=== PATIENT | female | born 1980 | race Caucasian/White ===

== ENCOUNTER 2019-06-13 12:11 | Emergency (ER) | payer MEDICAID, SELFPAY ==
[2019-06-13 12:14] VITALS: BP 153/78; PULSE 66; RESP 18; TEMP 36.7; O2SAT 98; BMI 34.0
--- NOTE | 2019-06-13 12:30 | CT_ITS ---
STUDY: CT SOFT TISSUE NECK WITH CONTRAST REASON FOR EXAM: Female, 38 years old. SWELLING TO BACK OF HEAD -- NO INJURY -- HX-LUPUS -- PLEASE COMMENT ON C-SPINE ALSO RADIATION DOSAGE (If Supplied By Facility): CTDIvol = ( 22.37 ) mGy, DLP = ( 620.04 ) mGycm TECHNIQUE: The patient was scanned in a multi-detector CT scanner. High resolution transaxial imaging was performed following intravenous administration of IV 75mL Isovue-300. Sagittal and coronal images were reconstructed. Individualized dose optimization techniques were used for this CT. COMPARISON: None. FINDINGS: Normal bilateral parotid glands. Normal bilateral director of promotions spaces. Normal bilateral parapharyngeal spaces. Normal bilateral carotid spaces. Normal bilateral sublingual and submandibular glands and spaces. Normal visualized nasopharynx. Normal retropharyngeal space. Normal perivertebral space. Normal visualized bilateral faucial tonsils. The visualized tongue, tongue base and oropharynx are normal. The visualized cervical lymph nodes (levels I-) are within normal size limits, and maintain normal morphology. There is no demonstrated solid or cystic mass lesion. There is no abnormal contrast enhancement. Normal epiglottis, bilateral vallecula and hypopharynx. The pre-epiglottic and paraglottic adipose spaces are normal. Normal visualized bilateral piriform sinuses, aryepiglottic folds, vocal cords, and arytenoid-cricoid articulations. Normal subglottic trachea. Normal bilateral lobes of the thyroid gland. Normal visualized pulmonary apices. Mucosal polyps or retention cysts in the inferior aspect of both maxillary sinuses. Straightening of the normal cervical spine lordosis. CT/Soft Tissue Neck WITH Contrast IMPRESSION: Mucosal polyps or retention cyst in the inferior aspect of both maxillary sinuses. Electronically Signed: Michael Pinto, at 14:20 EDT , Service support ,
[2019-06-13] MEDS: Morphine 4 MG/ML Syringe IV (12:50)
[2019-06-13] MEDS: Ondansetron 4 MG/2 ML Vial IV (12:50)
[2019-06-13 13:06] LABS: Absolute Lymphocyte Count 1.33 X10^3/uL (0.83-4.51); Basophil# 0.03 X10^3/uL; Basophil% 0.5 % (0-1); Eosinophil# 0.16 X10^3/uL; Eosinophils% 2.6 % (0-5); Hematocrit 38.4 % (37-47); Hemoglobin 12.5 g/dL (12.0-15.0); Lymphocyte # 1.33 X10^3/ul (4.0); Lymphocyte % 21.8 % (19-41); Mean Corp Hgb Conc 32.6 g/dL (32-36); Mean Corpuscular Hgb 28.5 pg (27.0-32.0); Mean Corpuscular Volume 87.5 fL (81-99); Mean Platelet Vol. 9.6 fl (6.2-12.0); Monocyte# 0.58 X10^3/uL; Monocyte% 9.5 % (0-10); NRBC Flagged by Analyzer 0 % (0-5); Neutrophil % 65.4 % (47-70); Platelet Count 267 K/mm3 (150-450); RBC Distribution Width CV 12.5 % (11.6-14.6); RBC Distribution Width SD 39.8 fl (35.1-43.9); Red Blood Count 4.39 M/mm3 (4.2-5.4); White Blood Count 6.1 K/mm3 (4.4-11.0)
[2019-06-13 13:19] LABS: Anion Gap 3 (5-15); BUN 7 mg/dL (7-18); BUN/Creat Ratio 10.7 RATIO (10-20); Calcium,Total 8.6 mg/dL (8.5-10.1); Chloride 110 mmol/L (98-107); Creatinine, Serum 0.66 mg/dL (0.55-1.02); EST Glomerular Filtration Rate 108 mL/min (>60); Est Glom Filt Rate - Afr Amer 131 mL/min (>60); Estimated Creatinine Clearance 97.48 ml/min; Glucose 95 mg/dL (74-106); Potassium 3.8 mmol/L (3.5-5.1); Sodium Level 139 mmol/L (136-145)
[2019-06-13] MEDS: Acetaminophen 500 MG Tablet 1000 MG PO (14:30)
[2019-06-13 14:32] VITALS: BP 111/57; PULSE 64; RESP 17; O2SAT 97
--- NOTE | 2019-06-13 14:58 | ED.VIS.GEN ---
History of Present Illness Chief Complaint: Other, Pain/Inj Narrative: Patient presenting secondary to neck pain. Patient has an underlying history of lupus, she is on methotrexate and hydroxychloroquine. Patient states that over the course of about the last 4 days she has had a progressive onset of pain in the posterior portion of her neck. Patient states that this was atraumatic in onset is continuous and seems to be tracking down her thoracic spine. Pain is worse with palpation and movement. She denies any numbness or weakness. She denies any infectious type signs or symptoms such as fever cough nausea vomiting diarrhea. No skin changes. She is never had any prior similar episodes in the past. Review of systems otherwise negative. Past Medical History - Allergies and Home Meds Allergies/Adverse Reactions: Allergies levofloxacin [From Levaquin] Allergy (Verified 06/13/19 12:14) Hives Penicillins [PCN] Allergy (Verified 06/13/19 12:14) Anaphylaxis metoclopramide [From Reglan] Adverse Reaction (Verified 06/13/19 12:14) PT UNSURE OF REACTION Primary Care Physician: MURIEL LOPEZ [Other] Past Medical History: - - Lupus Smoking Status: Never smoker Review of Systems All systems negative except as indicated General: Denies: Chills, Fever, Sweats Eyes: Denies: Visual changes - bilaterally, Diplopia ENT: Denies: Rhinorrhea, Sore throat Cardiovascular: Denies: Chest pain, Palpitations Respiratory: Denies: Dyspnea, Cough, Dyspnea on exertion Gastrointestinal: Denies: Abdominal pain, Nausea, Vomiting, Diarrhea, Melena, Hematochezia Genitourinary: Denies: Dysuria, Hematuria, Frequency Musculoskeletal: Reports: Neck pain Skin: Denies: Rash, Wounds Neurological: Denies: Headache, Weakness, Numbness Physical Exam Vital Signs/Narrative: Vital Signs Temp Pulse Resp BP Pulse Ox 06/13/19 14:32 64 17 111/57 L 97 06/13/19 12:14 98.1 F 66 18 153/78 H 98 Inital Vital Signs reviewed: Yes General: Well nourished, Well developed, No Acute Distress Head: Normocephalic, Atraumatic Eyes: Perrl, EOMI ENT: Moist mucous membranes, No rhinorrhea Neck: Supple, - - Patient complains of paraspinal neck pain in the cervical spine and states that there is swelling in the area but I am not able to appreciate this objectively. There is a small pustule at the approximately C2 level of the midline of the patient's neck. Cardiovascular: Regular rate, Regular rhythm, No murmurs Respiratory: No distress, CTA bilaterally, Chest nontender Abdomen: Soft, Nontender, Nondistended, Normal bowel sounds Back: Nontender, Normal Inspection Extremities: Nontender, No edema, - - 5 out of 5 strength of the shoulder elbow wrist and hand. Normal sensation over all dermatomes. Skin: Normal color, No rash Neurological: Alert, Oriented x3, Cranial nerves II-XII grossly intact, Normal Strength, Normal Sensation Psychological: Normal affect, Normal Mood Diagnostic/Tx/Re-eval - Medical Decision Making Patient presented secondary to neck pain. Physical exam but we really was not able to identify masses in the patient's neck, but she is immunosuppressed due to her lupus so work-up was obtained. CBC and chemistry unremarkable. CT soft tissue neck was obtained and shows no evidence of soft tissue masses, bony changes, or other acute process. Patient at this point likely has a musculoskeletal etiology for her pain. Patient will be given lidocaine patches and muscle relaxers. Patient was discharged in stable condition. ED Disposition - Plan for ED Patient: Disposition: Home or Assisted Living Diagnosis: Cervical strain Instructions: ED Sprain Strain Neck Prescriptions: cycloBENZAPRine HCl [Flexeril] 10 mg PO TID PRN #20 tab PRN Reason: Muscle Spasm Prescription Printed Lidocaine [Lidoderm Patch] 1 patch TOPICAL DAILY #10 patch Prescription Printed Referrals: MURIEL LOPEZ [Other] - 1 Week
[2019-06-13 15:11] VITALS: BP 108/70; PULSE 75; RESP 14; O2SAT 100
== END 2019-06-13 15:13 | disposition home or self-care (01) ==
PROVIDERS: Emergency Provider Emergency Medicine
DX: S16.1XXA Strain of muscle, fascia and tendon at neck level, initial encounter (principal); L08.9 Local infection of the skin and subcutaneous tissue, unspecified; X58.XXXA Exposure to other specified factors, initial encounter; Y93.9 Activity, unspecified; Y92.9 Unspecified place or not applicable; Y99.9 Unspecified external cause status; M32.9 Systemic lupus erythematosus, unspecified; Z88.0 Allergy status to penicillin; Z88.1 Allergy status to other antibiotic agents; Z88.8 Allergy status to other drugs, medicaments and biological substances; Z79.899 Other long term (current) drug therapy
CPT/HCPCS: 70491; 80048; 85025; 96374; 96375; 99283; J7050; Q9967; A4216; J2405

== ENCOUNTER → 2019-06-16 12:58 | Outpatient (CLI) | payer MEDICAID, SELFPAY ==
[2019-06-13 12:14] VITALS: BMI 34.0
[2019-06-16 14:35] LABS: Vitamin D,25 Hydroxy 23.3 ng/mL
== END ==
DX: S92.901A Unspecified fracture of right foot, initial encounter for closed fracture (principal); X58.XXXA Exposure to other specified factors, initial encounter; Y93.9 Activity, unspecified; Y92.9 Unspecified place or not applicable; Y99.9 Unspecified external cause status
CPT/HCPCS: 36415; 82306

== ENCOUNTER 2019-06-21 15:02 | Emergency (ER) | payer MEDICAID, SELFPAY ==
[2019-06-21 15:03] VITALS: BP 142/79; PULSE 86; RESP 17; TEMP 36.3; O2SAT 100; BMI 40.7
--- NOTE | 2019-06-21 15:12 | CT_ITS ---
STUDY: CT ABDOMEN AND PELVIS WITHOUT CONTRAST REASON FOR EXAM: Female, 38 years old. RIGHT FLANK PAIN RADIATES TO RLQ--SUDDEN ONSET THIS AM -- HX-LUPUS--TAKES METHOTREXATE RADIATION DOSAGE (If Supplied By Facility): CTDIvol = ( 21.29 ) mGy, DLP = ( 1095.64 ) mGycm TECHNIQUE: Transaxial images were obtained from the dome of the diaphragm to the symphysis pubis without oral contrast, and without intravenous contrast. Sagittal and coronal images were reconstructed. Individualized dose optimization techniques were used for this CT. COMPARISON: None. FINDINGS: Minimal increased markings at the lung bases. The visualized portions of the heart are within normal limits. Normal liver. There are surgical clips in the gallbladder fossa consistent with a prior cholecystectomy. Normal spleen. Normal pancreas. Normal bilateral adrenal glands. Normal right kidney. Normal left kidney. There is a small hiatal hernia. Normal small intestine. Normal colon. The appendix is visualized and appears normal. Normal abdominal aorta. Normal inferior vena cava. There is borderline retroperitoneal lymphadenopathy with enlarged nodes no greater than 10mm in the short axis diameter. Normal urinary bladder. Normal abdominal wall. Normal osseous structures. CT/Abdomen/Pelvis without Cont IMPRESSION: No acute abnormality is seen. Electronically Signed: Michael Pinto, at 15:54 EDT , Service support ,
--- NOTE | 2019-06-21 15:13 | ED.VIS.GEN ---
History of Present Illness Chief Complaint: Abd Pain Narrative: 38-year-old female presents with right flank pain that is radiating anteriorly. It started fairly suddenly at 4 AM and woke her from sleep. It radiates somewhat to the left but it is much worse on the right. She denies any injury. No urinary symptoms. No pelvic pain. No vaginal bleeding or discharge. She denies previous similar symptoms. Denies recent illness. She is nauseated but not vomiting. Bowel movements have been normal. Current severity of her pain is moderate. It is not affected by movement. Prior similar symptoms: No Recent Illness/Hospitalization: No Capacity - Capacity Assessment Tool Can the patient make a choice & communicate that choice?: Yes Past Medical History - Allergies and Home Meds Allergies/Adverse Reactions: Allergies levofloxacin [From Levaquin] Allergy (Verified 06/21/19 15:02) Hives Penicillins [PCN] Allergy (Verified 06/21/19 15:02) Anaphylaxis metoclopramide [From Reglan] Adverse Reaction (Verified 06/21/19 15:02) PT UNSURE OF REACTION Primary Care Physician: Zaire Hernandez,Out of [Primary Care Provider] - Prior records reviewed: Yes Smoking Status: Never smoker Review of Systems General: Denies: Chills, Fever, Sweats Eyes: Denies: Visual changes - bilaterally, Diplopia ENT: Denies: Rhinorrhea, Sore throat Cardiovascular: Denies: Chest pain, Palpitations Respiratory: Denies: Dyspnea, Cough, Dyspnea on exertion Gastrointestinal: Reports: Abdominal pain, Nausea. Denies: Vomiting, Diarrhea, Melena, Hematochezia Genitourinary: Denies: Dysuria, Hematuria, Frequency Musculoskeletal: Reports: Back pain. Denies: Extremity Pain Skin: Denies: Rash, Wounds Neurological: Denies: Headache, Weakness, Numbness Physical Exam Vital Signs/Narrative: Vital Signs Temp Pulse Resp BP Pulse Ox 06/21/19 15:03 97.3 F L 86 17 142/79 H 100 General: Well nourished, Well developed, Acute Distress Head: Normocephalic, Atraumatic Eyes: Perrl, EOMI ENT: Moist mucous membranes, No rhinorrhea Neck: Supple, Nontender Cardiovascular: Regular rate, Regular rhythm, No murmurs Respiratory: No distress, CTA bilaterally, Chest nontender Abdomen: Soft, Nondistended, Normal bowel sounds, Tender - RLQ, no rebound or guarding Back: Nontender, CVA tenderness - right Extremities: Nontender, No edema Skin: Normal color, No rash Neurological: Alert, Oriented x3, Cranial nerves II-XII grossly intact, Normal Strength, Normal Sensation Psychological: Normal affect, Normal Mood Diagnostic/Tx/Re-eval - Medical Decision Making I have ordered labs, urinalysis, and CT scan. Pain was addressed. She was given IV fluids. Imaging and labs will be checked by the oncoming physician and disposition will be made. ED Disposition - Plan for ED Patient: Referrals: [facility] Doctor,Out of [Primary Care Provider] -
[2019-06-21] MEDS: 0.9% Normal Saline 1,000 ML 1000 ML IV (15:29)
[2019-06-21] MEDS: Morphine 4 MG/ML Syringe IV (15:30)
[2019-06-21] MEDS: Ondansetron 4 MG/2 ML Vial IV (15:30)
[2019-06-21 15:38] LABS: Bacteria 0 SEEN /hpf (None Seen); Mucous, Urine 0 SEEN /hpf (<or=2+); Red Blood Cells-Urine 0 SEEN /hpf (0-5); White Blood Cells 0 SEEN /hpf (0-5)
[2019-06-21 15:40] LABS: Color, Urine Yellow (Yellow); Glucose, Dipstick Normal (Normal); Ketone-Dipstick Negative (Negative); Leukocyte Esterase-Dipstick Negative /ul (Negative); Nitrite-Dipstick Negative (Negative); Occult Blood-Urine Negative /ul (Negative); Protein-Dipstick Negative (Negative); Urine Bilirubin Dipstick Negative (Negative); Urine Clarity Clear (Clear); Urine Urobilinogen Normal (Normal)
[2019-06-21 15:48] LABS: Absolute Lymphocyte Count 1.76 X10^3/uL (0.83-4.51); Basophil# 0.04 X10^3/uL; Basophil% 0.6 % (0-1); Eosinophil# 0.18 X10^3/uL; Eosinophils% 2.7 % (0-5); Hematocrit 40.3 % (37-47); Hemoglobin 12.9 g/dL (12.0-15.0); Lymphocyte # 1.76 X10^3/ul (4.0); Lymphocyte % 26.5 % (19-41); Mean Corpuscular Hgb 28.7 pg (27.0-32.0); Mean Corpuscular Volume 89.8 fL (81-99); Mean Platelet Vol. 9.6 fl (6.2-12.0); Monocyte# 0.63 X10^3/uL; Monocyte% 9.5 % (0-10); NRBC Flagged by Analyzer 0 % (0-5); Neutrophil % 60.2 % (47-70); Platelet Count 282 K/mm3 (150-450); RBC Distribution Width CV 13.1 % (11.6-14.6); RBC Distribution Width SD 42.5 fl (35.1-43.9); Red Blood Count 4.49 M/mm3 (4.2-5.4); White Blood Count 6.6 K/mm3 (4.4-11.0)
[2019-06-21 15:56] LABS: AST(SGOT) 14 U/L (15-37); Alanine Aminotransfer ALT/SGPT 36 U/L (13-56); Albumin, Serum 3.7 g/dL (3.2-5.0); Alkaline Phosphatase 45 U/L (45-117); Anion Gap 8 (5-15); BUN 11 mg/dL (7-18); BUN/Creat Ratio 16.4 RATIO (10-20); Bilirubin, Direct 0.05 mg/dL (0.00-0.30); Chloride 107 mmol/L (98-107); Creatinine, Serum 0.67 mg/dL (0.55-1.02); EST Glomerular Filtration Rate 105 mL/min (>60); Est Glom Filt Rate - Afr Amer 127 mL/min (>60); Estimated Creatinine Clearance 96.02 ml/min; Globulin 3.5 g/dL (2.2-4.2); Glucose 92 mg/dL (74-106); Lipase 132 U/L (73-393); Potassium 3.8 mmol/L (3.5-5.1); Protein, Total 7.2 g/dL (6.4-8.2); Sodium Level 140 mmol/L (136-145)
--- NOTE | 2019-06-21 15:58 | US_ITS ---
STUDY: ULTRASOUND OF THE FEMALE PELVIS - COMPLETE REASON FOR EXAM: Female, 38 years old. Lower abdominal pain, right greater than left beginning today. Nausea and vomiting. LMP: June 01, 2019. TECHNIQUE: Transabdominal and Transvaginal TECHNICAL QUALITY: Adequate. COMPARISON: CT of the abdomen and pelvis, June 21, 2019. FINDINGS: The uterus is anteverted and is in a midline position. The uterus measures 12.0 x 6.3 x 4.3 cm. There aren''t Nabothian cysts of the cervix. The endometrium measures 7 mm in thickness, and is hyperechoic. There is no demonstrated endometrial mass. There is no demonstrated myometrial mass. I.U.D. - The patient does not have an I.U.D. The right ovary is visualized. The right ovary measures 4.2 x 3.3 x 2.0 cm. There is a 1.6 x 1.8 x 1.2 cm dominant follicle versus small cyst. There is no visualized right adnexal mass or complex lesion. There is normal arterial and normal venous vascularity. The left ovary is visualized. The left ovary measures 2.6 x 2.4 x 1.5 cm. There are multiple follicles of the left ovary without a dominant cyst. There is no visualized left adnexal mass or complex lesion. There is normal arterial and normal venous vascularity. There is no fluid in the cul-de-sac. Normal visualized ureter.. Polycystic ovary disease: No. US/Transvaginal Non- IMPRESSION: Normal female pelvis. Electronically Signed: Jered Méndez DO at 16:46 EDT Tel [phone], Service support ,
[2019-06-21 16:07] LABS: Squamous Epithelial Cells - UA 0-5 SEEN /hpf (5-10)
[2019-06-21 16:35] LABS: Internal QC Validated? YES +Cl - CLEAR BKGD; Pregnancy, Serum, hCG Quali. NEGATIVE Negative
--- NOTE | 2019-06-21 17:34 | ED.DCSUM_ITS ---
- ER Visit Summary Date of Service: 06/21/19 Chief Complaint: [Abdominal pain] History of Present Illness: The patient is a 38 F [presented to the emergency department with abdominal pain that started around 4 AM. Patient states the pains in her back and radiates to the right lower quadrant. Care of patient turned over to me awaiting pelvic ultrasound as her lab work and urinalysis were normal as well as the CT scan of the flank. Pelvic ultrasound was ordered to rule out ovarian torsion. Pelvic ultrasound also was normal. Patient initially was medicated with morphine and Zofran.] Physical Examination: [HEENT-PERRLA, EOMI. Cranial nerves II through XII grossly intact. TMs clear. Mucous membranes moist. No adenopathy. Cardiovascular-regular rate and rhythm without murmur or ectopy Lungs-clear to auscultation, chest wall stable without crepitus or subcu emphysema Abdomen-normoactive bowel sounds, soft, with mild tenderness to the right lower quadrant., no rebound or rigidity, no peritoneal signs. Mild CVA tenderness on the right. Extremities-intact ?4, normal range of motion, normal pulses, atraumatic] Test Results: [CBC with it was normal. Chemistries normal. hCG was negative. LFTs were normal. Urinalysis normal. CT flank unremarkable. Pelvic ultrasound was normal.] Emergency Department Course and Treatment: [] Treatment Plan: [Patient will be given a prescription for [place] as well as Naprosyn. Patient advised to follow-up with primary care physician in 3 to 5 days. Patient advised to return if worsening pain, fever, vomiting, or condition should worsen anyway.] Disposition: [Discharged home in stable condition.] Impression: [Right flank/abdominal pain-etiology uncertain] This note was generated with [employer] dictation software. It may contain incorrect words, spelling, and punctuation that were not noted in review of the chart prior to signing ED Disposition - Plan for ED Patient: Referrals: [facility] Doctor,Out of [NON-STAFF] -
--- NOTE | 2019-06-21 17:36 | DCINST.ED_ITS ---
ED Disposition - Plan for ED Patient: Instructions: ED Abdominal Pain Unkn Cause Fem Prescriptions: Naproxen [Naprosyn] 500 mg PO BID PRN #20 tab Transmission Status: Pending to [facility] Hydrocodone Bitart/Apap 5-325 [[place] 5MG-325MG] 1 tablet PO Q4H PRN PRN 2 Days #10 tablet PRN Reason: Pain Transmission Status: Sent to [facility] Referrals: [facility] Doctor,Out of [NON-STAFF] - Chantal Murcia MD [STAFF PHYSICIAN] - 3-5 Days
--- NOTE | 2019-06-21 17:36 | ED.DEP ---
ED Disposition - Plan for ED Patient: Instructions: ED Abdominal Pain Unkn Cause Fem Prescriptions: Naproxen [Naprosyn] 500 mg PO BID PRN #20 tab Transmission Status: Pending to [facility] Hydrocodone Bitart/Apap 5-325 [[place] 5MG-325MG] 1 tablet PO Q4H PRN PRN 2 Days #10 tablet PRN Reason: Pain Transmission Status: Sent to [facility] Referrals: [facility] Doctor,Out of [NON-STAFF] - Chantal Murcia MD [STAFF PHYSICIAN] - 3-5 Days
[2019-06-21 17:48] VITALS: BP 136/75; PULSE 81; RESP 18; O2SAT 98
== END 2019-06-21 17:49 | disposition home or self-care (01) ==
LOC: ED 15:42
PROVIDERS: Emergency Provider Emergency Medicine
DX: R10.31 Right lower quadrant pain (principal); Z79.899 Other long term (current) drug therapy; Z88.0 Allergy status to penicillin; Z88.1 Allergy status to other antibiotic agents; Z88.8 Allergy status to other drugs, medicaments and biological substances
CPT/HCPCS: 74176; 76830; 80048; 80076; 81001; 83690; 84703; 85025; 93976; 96361; 96374; 96375; 99283; J7030; A4216; J2405

== ENCOUNTER 2019-06-29 19:05 | Emergency (ER) | payer MEDICAID, SELFPAY ==
[2019-06-29 19:05] VITALS: BP 142/90; PULSE 118; RESP 18; TEMP 36.8; O2SAT 100; BMI 35.1
--- NOTE | 2019-06-29 19:38 | ED.DCSUM_ITS ---
History of Present Illness Chief Complaint: Edema Informant: Patient Onset: Today Narrative: Sudden worsening swelling bilateral legs and pain back of her knees down. No chest pains or shortness of breath. No recent travel, surgeries, or immobilizations. No history of PE or DVT. Tylenol without relief. History of lupus on methotrexate and hydroxychloroquine. Unable to do NSAIDs secondary to this. Denies any trauma. Prior similar symptoms: No Past Medical History - Allergies and Home Meds Allergies/Adverse Reactions: Allergies levofloxacin [From Levaquin] Allergy (Verified 06/29/19 19:07) Hives Penicillins [PCN] Allergy (Verified 06/29/19 19:07) Anaphylaxis metoclopramide [From Reglan] Adverse Reaction (Verified 06/29/19 19:07) PT UNSURE OF REACTION Primary Care Physician: NOT,DEFINED [Primary Care Provider] - Past Medical History: - - Lupus Smoking Status: Never smoker Review of Systems General: Denies: Chills, Fever, Sweats Eyes: Denies: Visual changes - bilaterally, Diplopia ENT: Denies: Rhinorrhea, Sore throat Cardiovascular: Denies: Chest pain, Palpitations Respiratory: Denies: Dyspnea, Cough, Dyspnea on exertion Gastrointestinal: Denies: Abdominal pain, Nausea, Vomiting, Diarrhea, Melena, Hematochezia Genitourinary: Denies: Dysuria, Hematuria, Frequency Musculoskeletal: Reports: Swelling. Denies: Back pain, Extremity Pain Skin: Denies: Rash, Wounds Neurological: Denies: Headache, Weakness, Numbness Physical Exam Vital Signs/Narrative: Vital Signs Temp Pulse Resp BP Pulse Ox 06/29/19 19:05 98.3 F 118 H 18 142/90 H 100 Inital Vital Signs reviewed: Yes General: Well nourished, Well developed, No Acute Distress Head: Normocephalic, Atraumatic Eyes: Perrl, EOMI ENT: Moist mucous membranes, No rhinorrhea Neck: Supple, Nontender Cardiovascular: Regular rate, No murmurs, Tachycardia Respiratory: No distress, CTA bilaterally, Chest nontender Abdomen: Soft, Nontender, Nondistended, Normal bowel sounds Back: Nontender, Normal Inspection Extremities: Nontender, Edema, - Skin: Normal color, No rash Neurological: Alert, Oriented x3, Cranial nerves II-XII grossly intact, Normal Strength, Normal Sensation Psychological: Normal affect, Normal Mood Diagnostic/Tx/Re-eval Abnormal Lab Results 06/29/19 20:12 Sodium 141 Potassium 3.5 Chloride 110 H Carbon Dioxide 23.0 Anion Gap 8 BUN 10 Creatinine 0.71 Estim Creat Clear Calc 86.64 Est GFR (MDRD) Af Amer 120 Est GFR (MDRD) Non-Af 99 BUN/Creatinine Ratio 14.2 Glucose 97 Calcium 8.9 - Medical Decision Making Patient tachycardic on arrival however likely due to pain. Pulses intact the lower extremities she does have calf pain. She has lupus history of puts her at risk. She is not hypoxic. She denies any respiratory symptoms. Ultrasounds of the legs were negative for DVT I did check BMP, normal potassium and creatinine. Discussed peripheral edema at this time. Treated with hydrocodone, NSAIDs avoided secondary to her medications treating for her lupus. With her peripheral edema discuss starting short course of diuretics. She agrees. Short prescription for pain control. Discussed continue elevation and follow-up with her PCP. All questions were answered. ED Disposition - Plan for ED Patient: Disposition: Home or Assisted Living Diagnosis: Peripheral edema Instructions: ED Peripheral Edema, Bilateral Prescriptions: Furosemide [Lasix] 20 mg PO DAILY #5 tab Transmission Status: Pending to [facility] Hydrocodone Bitart/Apap 5-325 [[place] 5MG-325MG] 1 tablet PO Q6H PRN PRN 3 Days #10 tablet PRN Reason: Pain Transmission Status: Sent to [facility] Referrals: NOT,DEFINED [Primary Care Provider] - Additional Instructions: Ultrasounds negative for DVT. Kidney function is normal. Take medication as prescribed and follow-up with your doctor.
--- NOTE | 2019-06-29 19:41 | US_ITS ---
STUDY: VENOUS DOPPLER ULTRASOUND - BILATERAL LOWER EXTREMITIES REASON FOR EXAM: Female, 38 years old. BILAT SWELLING AND LUMPS- X 4 DAYS TECHNIQUE: Ultrasound evaluation of the deep vein system to include wong-scale imaging and compression was performed. Wong-scale imaging and Doppler sonographic evaluation, including duplex spectral analysis and qualitative color flow sonography, was performed. COMPARISON: None. FINDINGS: RIGHT LEG Common Femoral Vein: Normal compression, spontaneity and augmentation. Normal color Doppler. Common Femoral Vein/Greater Saphenous Junction: Normal compression. No internal echoes. Deep Femoral Vein: Not imaged Femoral Proximal: Normal compression. No internal echoes. Femoral Middle: Normal compression, spontaneity and augmentation. Normal color Doppler. Femoral Distal: Normal compression. No internal echoes. Popliteal Vein: Normal compression, spontaneity and augmentation. Normal color Doppler. Posterior Tibial Vein: Normal compression. No internal echoes. Peroneal Vein: Normal compression. No internal echoes. LEFT LEG Common Femoral Vein: Normal compression, spontaneity and augmentation. Normal color Doppler. Common Femoral Vein/Greater Saphenous Junction: Normal compression. No internal echoes. Deep Femoral Vein: Not imaged Femoral Proximal: Normal compression. No internal echoes. Femoral Middle: Normal compression, spontaneity and augmentation. Normal color Doppler. Femoral Distal: Normal compression. No internal echoes. Popliteal Vein: Normal compression, spontaneity and augmentation. Normal color Doppler. Posterior Tibial Vein: Normal compression. No internal echoes. Peroneal Vein: Normal compression. No internal echoes. US/Venous Duplex Imag/Kiran Extrem IMPRESSION: Normal venous Doppler ultrasound of the bilateral lower extremities. Electronically Signed: Santi Little MD at 21:22 EDT , Service support ,
[2019-06-29] MEDS: HYDROcodone Bitartrate/Apap 5/325 Tablet PO ×2 (19:50→21:51)
[2019-06-29 20:39] LABS: Anion Gap 8 (5-15); BUN 10 mg/dL (7-18); BUN/Creat Ratio 14.2 RATIO (10-20); Calcium,Total 8.9 mg/dL (8.5-10.1); Chloride 110 mmol/L (98-107); Creatinine, Serum 0.71 mg/dL (0.55-1.02); EST Glomerular Filtration Rate 99 mL/min (>60); Est Glom Filt Rate - Afr Amer 120 mL/min (>60); Estimated Creatinine Clearance 86.64 ml/min; Glucose 97 mg/dL (74-106); Potassium 3.5 mmol/L (3.5-5.1); Sodium Level 141 mmol/L (136-145)
[2019-06-29] MEDS: Furosemide 20 MG Tablet PO (21:52)
[2019-06-29 21:56] VITALS: PULSE 109; RESP 15; O2SAT 97
== END 2019-06-29 21:56 | disposition home or self-care (01) ==
LOC: ED 21:35
PROVIDERS: Emergency Provider Emergency Medicine
DX: R60.0 Localized edema (principal); M32.9 Systemic lupus erythematosus, unspecified; Z79.899 Other long term (current) drug therapy
CPT/HCPCS: 80048; 93970; 99284; A4216

== ENCOUNTER 2019-07-07 15:32 | Emergency (ER) | payer MEDICAID, SELFPAY ==
[2019-07-07 15:34] VITALS: BP 133/68; PULSE 69; RESP 16; TEMP 36.6; O2SAT 98; BMI 35.0
--- NOTE | 2019-07-07 15:52 | CT_ITS ---
STUDY: CT ABDOMEN AND PELVIS WITHOUT CONTRAST REASON FOR EXAM: Female, 38 years old. Abdominal pain. Back pain during urination. RADIATION DOSAGE (If Supplied By Facility): CTDIvol = ( 22.37 ) mGy, DLP = ( 1100.89 ) mGycm TECHNIQUE: Transaxial images were obtained from the dome of the diaphragm to the symphysis pubis without oral contrast, and without intravenous contrast. Sagittal and coronal images were reconstructed. Individualized dose optimization techniques were used for this CT. COMPARISON: Pelvic ultrasound, June 21, 2019. CT of the abdomen and pelvis, June 21, 2019. FINDINGS: The visualized lung bases are unremarkable. The visualized portions of the heart are within normal limits. Normal liver. There are surgical clips in the gallbladder fossa consistent with a prior cholecystectomy. Normal spleen. Normal pancreas. Normal bilateral adrenal glands. Normal right kidney. Normal left kidney. Normal bilateral ureters. Normal visualized stomach. Normal small intestine. Normal colon. The appendix is visualized and appears normal. Normal abdominal aorta. Normal inferior vena cava. Normal retroperitoneum. Normal urinary bladder. A normal uterus and adnexa. There is no pelvic lymphadenopathy or mass. No free air or free fluid is seen within the peritoneal cavity. Normal abdominal wall. Normal osseous structures. CT/Abdomen/Pelvis without Cont IMPRESSION: No acute intra-abdominal or pelvic abnormality. There is no major interval change. Electronically Signed: Jered Méndez DO at 17:53 EDT Tel [phone], Service support ,
[2019-07-07] MEDS: 0.9% Normal Saline 1,000 ML 1000 ML IV (16:22)
[2019-07-07] MEDS: Morphine 4 MG/ML Syringe IV ×2 (16:22→18:07)
[2019-07-07] MEDS: Ondansetron 4 MG/2 ML Vial IV (16:23)
[2019-07-07 16:37] LABS: Mucous, Urine 0 SEEN /hpf (<or=2+); Red Blood Cells-Urine 0 SEEN /hpf (0-5); White Blood Cells 0 SEEN /hpf (0-5)
[2019-07-07 16:45] LABS: Absolute Lymphocyte Count 1.74 X10^3/uL (0.83-4.51); Basophil# 0.04 X10^3/uL; Basophil% 0.6 % (0-1); Eosinophil# 0.12 X10^3/uL; Eosinophils% 1.9 % (0-5); Hematocrit 38.6 % (37-47); Hemoglobin 12.3 g/dL (12.0-15.0); Lymphocyte # 1.74 X10^3/ul (4.0); Lymphocyte % 26.9 % (19-41); Mean Corp Hgb Conc 31.9 g/dL (32-36); Mean Corpuscular Hgb 28.5 pg (27.0-32.0); Mean Corpuscular Volume 89.4 fL (81-99); Mean Platelet Vol. 9.8 fl (6.2-12.0); Monocyte# 0.55 X10^3/uL; Monocyte% 8.5 % (0-10); NRBC Flagged by Analyzer 0 % (0-5); Neutrophil # 3.98 X10^3/uL (2.7-7.7); Neutrophil % 61.6 % (47-70); Platelet Count 275 K/mm3 (150-450); RBC Distribution Width CV 12.7 % (11.6-14.6); RBC Distribution Width SD 41.8 fl (35.1-43.9); Red Blood Count 4.32 M/mm3 (4.2-5.4); White Blood Count 6.5 K/mm3 (4.4-11.0)
[2019-07-07 16:52] LABS: Anion Gap 6 (5-15); BUN 7 mg/dL (7-18); BUN/Creat Ratio 10.8 RATIO (10-20); Calcium,Total 8.5 mg/dL (8.5-10.1); Chloride 113 mmol/L (98-107); Color, Urine Yellow (Yellow); Creatinine, Serum 0.65 mg/dL (0.55-1.02); EST Glomerular Filtration Rate 109 mL/min (>60); Est Glom Filt Rate - Afr Amer 132 mL/min (>60); Estimated Creatinine Clearance 98.98 ml/min; Glucose 96 mg/dL (74-106); Glucose, Dipstick Normal (Normal); Ketone-Dipstick Negative (Negative); Leukocyte Esterase-Dipstick Negative /ul (Negative); Nitrite-Dipstick Negative (Negative); Occult Blood-Urine Negative /ul (Negative); Potassium 3.6 mmol/L (3.5-5.1); Protein-Dipstick Negative (Negative); Sodium Level 144 mmol/L (136-145); Specific Gravity, Urine 1.015 (1.002-1.030); Urine Bilirubin Dipstick Negative (Negative); Urine Clarity Clear (Clear); Urine Urobilinogen Normal (Normal)
[2019-07-07 17:18] LABS: Internal QC Validated? YES +Cl - CLEAR BKGD; Pregnancy, Serum, hCG Quali. NEGATIVE Negative
[2019-07-07 17:23] LABS: Bacteria 1+ /hpf (None Seen); Squamous Epithelial Cells - UA 0-5 SEEN /hpf (5-10)
--- NOTE | 2019-07-07 17:35 | ED.VISSUMM ---
- ER Visit Summary Date of Service: 07/07/19 Chief Complaint: Abdominal pain History of Present Illness: The patient is a 38 F presenting with abdominal pain. Patient states this started earlier today. She has pain that started in her left lower back wraps around to her left lower quadrant. She also has right lower quadrant pain. She has had nausea vomiting. She had dysuria just prior to arrival. She denies fever. Denies other complaints. Physical Examination: Vitals are stable. Patient is afebrile. Alert no acute distress. HEENT exam is unremarkable. Neck is supple. Lungs are clear and equal bilaterally. Heart is regular rate and rhythm. Abdomen is soft bilateral lower quadrant tenderness with no guarding or rebound : No vaginal discharge. No cervical motion tenderness. Extremities are unremarkable. Skin is warm and dry. No focal neurologic deficit. Remainder of exam is unremarkable. Emergency Department Course and Treatment: Patient given morphine, Zofran IV. CBC, chemistries unremarkable. Urinalysis unremarkable. hCG negative. CT abdomen pelvis shows no acute intra-abdominal or pelvic abnormality. There is no major interval change. Pelvic ultrasound shows multiple nabothian cysts. The uterus is otherwise unremarkable. Multiple bilateral peripheral follicles in mildly prominent ovaries. There is no increase in number of follicles. Patient's pain is improved on reevaluation. She is given a prescription for short course of Percocet. Advised to follow-up with Dr. Farooq. Advised return to the ED for worsening complaints. Disposition: Discharge home Impression: Pelvic pain This note was generated with [email or web address] dictation software. It may contain incorrect words, spelling, and punctuation that were not noted in review of the chart prior to signing ED Disposition - Plan for ED Patient: Instructions: ED Pelvic Pain [facility] Prescriptions: Oxycodone HCl/Acetaminophen [Percocet 5/325] 1 tab PO Q6H PRN PRN 3 Days #12 tab PRN Reason: Pain Prescription Printed Referrals: MURIEL LOPEZ [Other] Madina Farooq MD [STAFF PHYSICIAN] -
--- NOTE | 2019-07-07 18:09 | US_ITS ---
STUDY: ULTRASOUND OF THE FEMALE PELVIS - COMPLETE REASON FOR EXAM: Female, 38 years old. Or abdominal pain. Pelvic pain. Irregular menses. LMP: July 02, 2019. TECHNIQUE: Transabdominal and Transvaginal TECHNICAL QUALITY: Adequate. COMPARISON: CT of the abdomen and pelvis, July 07, 2019. Pelvic ultrasound, June 21, 2019. FINDINGS: The uterus is retroverted and is in a midline position. The uterus measures 11.2 x 5.9 x 3.9 cm. Her multiple nabothian cysts in the cervix.. The endometrium measures 1.5 mm in thickness, and is hyperechoic. There is no demonstrated endometrial mass. There is no demonstrated myometrial mass. I.U.D. - The patient does not have an I.U.D. The right ovary is visualized. The right ovary measures 3.2 x 2.3 x 2.3 cm. There are multiple follicles of the right ovary without a dominant cyst. There is no visualized right adnexal mass or complex lesion. There is normal arterial and normal venous vascularity. The left ovary is visualized. The left ovary measures 3.0 x 2.6 x 1.6 cm. There are multiple follicles of the left ovary without a dominant cyst. There is no visualized left adnexal mass or complex lesion. There is normal arterial and normal venous vascularity. There is no fluid in the cul-de-sac. The urinary bladder is grossly unremarkable. US/Transvaginal Non- IMPRESSION: 1. Multiple nabothian cysts. The uterus is otherwise unremarkable. 2. Multiple bilateral peripheral follicles in mildly prominent ovaries. There is no increase in number of follicles. 3. Prior ultrasound. Electronically Signed: Jered Méndez DO at 19:00 EDT Tel [phone], Service support ,
[2019-07-07 18:46] VITALS: RESP 17
[2019-07-07] MEDS: HYDROmorphone 1 MG/ML Syringe IV (19:35)
[2019-07-07 19:37] VITALS: BP 138/83; PULSE 63; RESP 16; O2SAT 95
--- NOTE | 2019-07-07 19:37 | ED.DEP ---
ED Disposition - Plan for ED Patient: Instructions: ED Pelvic Pain [facility] Prescriptions: Oxycodone HCl/Acetaminophen [Percocet 5/325] 1 tablet PO Q6H PRN PRN 3 Days #12 tablet PRN Reason: Pain Referrals: MURIEL LOPEZ [Other] Madina Farooq MD [STAFF PHYSICIAN] -
== END 2019-07-07 20:39 | disposition home or self-care (01) ==
PROVIDERS: Emergency Provider Emergency Medicine
DX: R10.2 Pelvic and perineal pain (principal); N88.8 Other specified noninflammatory disorders of cervix uteri; M54.5 Low back pain; R10.31 Right lower quadrant pain; R30.0 Dysuria; R11.2 Nausea with vomiting, unspecified; Z79.899 Other long term (current) drug therapy
CPT/HCPCS: 74176; 76830; 80048; 81001; 84703; 85025; 93976; 96361; 96374; 96375; 96376; 99283; J7030; A4216; J2405

== ENCOUNTER 2019-07-08 19:53 | Emergency (ER) | payer MEDICAID, SELFPAY ==
[2019-07-07 15:34] VITALS: BMI 35.0
[2019-07-08 19:54] VITALS: BP 150/85; PULSE 68; RESP 15; TEMP 36.2; O2SAT 99; BMI 35.0
--- NOTE | 2019-07-08 20:17 | ED.VIS.GEN ---
History of Present Illness Chief Complaint: Other, Pain/Inj Informant: Patient Onset: Yesterday Context: Sudden Onset Timing: Continuous Quality: Pain Location: Suprapubic to supraumbilical predominantly midline Current Severity: Moderate Maximum Severity: Severe Worsened by: Walking Relieved by: Nothing Associated Symptoms: Nausea and vomiting x6 today Narrative: Patient is a 38-year-old woman status post bilateral tubal ligation who was seen yesterday and had work-up for her abdominal pain. CT of the abdomen pelvis revealed ovarian cyst. Ultrasound was performed to assess for torsion. There was no evidence of torsion. The ovaries were enlarged with prominent follicles. Nabothian cervical cysts were also noted. Patient denies urinary symptoms. She denies diarrhea. She has no history inflammatory bowel disorder. She has no history of endometriosis. Last normal menstrual. Was June 23. test yesterday was negative. Prior similar symptoms: Yes Recent Illness/Hospitalization: Yes - Past Medical History (1) No significant past medical history Status: Acute Past Medical History - Allergies and Home Meds Allergies/Adverse Reactions: Allergies acetaminophen [From Vicodin] Allergy (Verified 07/07/19 15:34) Hives hydrocodone [From Vicodin] Allergy (Verified 07/07/19 15:34) Hives levofloxacin [From Levaquin] Allergy (Verified 07/07/19 15:34) Hives Penicillins [PCN] Allergy (Verified 07/07/19 15:34) Anaphylaxis metoclopramide [From Reglan] Adverse Reaction (Verified 07/07/19 15:34) PT UNSURE OF REACTION Primary Care Physician: MURIEL LOPEZ [Other] Prior records reviewed: Yes Surgical History: - - Bilateral tubal ligation Lives: Spouse/ Significant Other Smoking Status: Never smoker Alcohol: None Drugs: None Review of Systems General: Denies: Chills, Fever, Malaise ENT: Denies: Rhinorrhea, Sore throat Cardiovascular: Denies: Chest pain, Palpitations Respiratory: Denies: Dyspnea, Cough Gastrointestinal: Reports: Abdominal pain, Nausea, Vomiting. Denies: Diarrhea, Constipation, Melena, Hematochezia Genitourinary: Denies: Dysuria, Hematuria, Frequency Musculoskeletal: Reports: Back pain - Left flank yesterday. Denies: Myalgias, Arthralgias, Neck pain, Swelling, Extremity Pain Skin: Denies: Rash, Wounds Neurological: Denies: Headache, Weakness, Parasthesia Endocrine: Denies: Polyuria Hematologic: Denies: Easy bruising, Easy bleeding Physical Exam Vital Signs/Narrative: Vital Signs Temp Pulse Resp BP Pulse Ox 07/08/19 19:54 97.2 F L 68 15 150/85 H 99 Inital Vital Signs reviewed: Yes General: Well nourished, Well developed, Obese, No Acute Distress Eyes: Perrl, EOMI. Negative for: Pale conjunctiva, Scleral icterus ENT: No rhinorrhea, Dry mucous membranes Neck: Supple, Nontender, No lymphadenopathy, No JVD Cardiovascular: Regular rate, Regular rhythm, No murmurs, Normal S1, Normal S2 Respiratory: No distress, CTA bilaterally, Chest nontender Abdomen: Soft, Nondistended, Normal bowel sounds, No masses, Tender. Negative for: Rebound tenderness Rectal: Deferred Back: Nontender, Normal Inspection. Negative for: CVA tenderness Extremities: Nontender, No edema Skin: Normal color, No rash, No Trauma. Negative for: Cyanosis, Diaphoresis, Jaundice Neurological: Alert, Oriented x3, Cranial nerves II-XII grossly intact, Normal Strength, Normal Sensation. Negative for: Normal Gait - Walks with a limp because of discomfort. Psychological: Normal affect, Tearful Diagnostic/Tx/Re-eval Laboratory Results 07/08/19 07/08/19 07/08/19 20:20 20:20 20:20 WBC 7.2 RBC 4.43 Hgb 12.4 Hct 39.7 MCV 89.6 MCH 28.0 MCHC 31.2 L RDW Std Deviation 42.4 RDW Coeff of Jerry 12.9 Plt Count 282 MPV 9.4 Immature Gran % (Auto) 0.300 Neut % (Auto) 63.5 Lymph % (Auto) 26.9 [place]lette % (Auto) 6.7 Eos % (Auto) 2.0 Baso % (Auto) 0.6 Absolute Neuts (auto) 4.6 Absolute Lymphs (auto) 1.93 Nucleated RBC % 0 Sodium 143 Potassium 3.6 Chloride 111 H Carbon Dioxide 26.0 Anion Gap 6 BUN 9 Creatinine 0.71 Estim Creat Clear Calc 90.61 Est GFR (MDRD) Af Amer 120 Est GFR (MDRD) Non-Af 99 BUN/Creatinine Ratio 12.7 Glucose 90 Calcium 9.0 Urine Color Yellow Urine Clarity Clear Urine pH 7.0 Ur Specific Cochrane 1.010 Urine Protein Negative Urine Glucose (UA) Normal Urine Ketones Negative Urine Occult Blood Negative Urine Nitrite Negative Urine Bilirubin Negative Urine Urobilinogen Normal Ur Leukocyte Esterase Negative Urine RBC 0 SEEN Urine WBC 0-5 SEEN Ur Squamous Epith Cells 5-10 SEEN Urine Bacteria 0 SEEN Urine Mucus 0 SEEN Patient's laboratory results are unremarkable. Patient was made aware of results. She was informed the cause of her pain is unknown. - Medical Decision Making No significant work-up yesterday. She states the pain is no different just persistent. IV was established. Because of allergy to opiates she was treated with IV Toradol and Zofran for her nausea and vomiting. UA was obtained and CBC and BMP to assess white count and renal function. ED Disposition - Plan for ED Patient: Disposition: Home or Assisted Living Diagnosis: Abdominal pain of unknown etiology, Nausea and vomiting, Mild dehydration Instructions: ED Abdominal Pain Unkn Cause Fem Prescriptions: Dicyclomine HCl [Bentyl] 20 mg PO TIDAC #20 cap Prescription Printed Referrals: MURIEL LOPEZ [Other] - 3-5 Days if not improving Additional Instructions: Keep upcoming appointment with motorboat mechanic inboard/outboard.
[2019-07-08 20:26] LABS: Bacteria 0 SEEN /hpf (None Seen); Mucous, Urine 0 SEEN /hpf (<or=2+); Red Blood Cells-Urine 0 SEEN /hpf (0-5)
[2019-07-08] MEDS: Ondansetron 4 MG/2 ML Vial IV (20:26)
[2019-07-08] MEDS: Ketorolac 15 MG/ML Vial IV (20:26)
[2019-07-08] MEDS: 0.9% Normal Saline 1,000 ML 1000 ML IV (20:26)
[2019-07-08 20:39] LABS: Absolute Lymphocyte Count 1.93 X10^3/uL (0.83-4.51); Absolute Neutrophil Count 4.6 X10^3/uL (2.0-7.7); Basophil# 0.04 X10^3/uL; Basophil% 0.6 % (0-1); Eosinophil# 0.14 X10^3/uL; Hematocrit 39.7 % (37-47); Hemoglobin 12.4 g/dL (12.0-15.0); Lymphocyte # 1.93 X10^3/ul (4.0); Lymphocyte % 26.9 % (19-41); Mean Corp Hgb Conc 31.2 g/dL (32-36); Mean Corpuscular Volume 89.6 fL (81-99); Mean Platelet Vol. 9.4 fl (6.2-12.0); Monocyte# 0.48 X10^3/uL; Monocyte% 6.7 % (0-10); NRBC Flagged by Analyzer 0 % (0-5); Neutrophil # 4.56 X10^3/uL (2.7-7.7); Neutrophil % 63.5 % (47-70); Platelet Count 282 K/mm3 (150-450); RBC Distribution Width CV 12.9 % (11.6-14.6); RBC Distribution Width SD 42.4 fl (35.1-43.9); Red Blood Count 4.43 M/mm3 (4.2-5.4); White Blood Count 7.2 K/mm3 (4.4-11.0)
[2019-07-08 20:43] LABS: Anion Gap 6 (5-15); BUN 9 mg/dL (7-18); BUN/Creat Ratio 12.7 RATIO (10-20); Chloride 111 mmol/L (98-107); Creatinine, Serum 0.71 mg/dL (0.55-1.02); EST Glomerular Filtration Rate 99 mL/min (>60); Est Glom Filt Rate - Afr Amer 120 mL/min (>60); Estimated Creatinine Clearance 90.61 ml/min; Glucose 90 mg/dL (74-106); Potassium 3.6 mmol/L (3.5-5.1); Sodium Level 143 mmol/L (136-145)
[2019-07-08 20:46] LABS: Color, Urine Yellow (Yellow); Glucose, Dipstick Normal (Normal); Ketone-Dipstick Negative (Negative); Leukocyte Esterase-Dipstick Negative /ul (Negative); Nitrite-Dipstick Negative (Negative); Occult Blood-Urine Negative /ul (Negative); Protein-Dipstick Negative (Negative); Urine Bilirubin Dipstick Negative (Negative); Urine Clarity Clear (Clear); Urine Urobilinogen Normal (Normal)
[2019-07-08 21:00] LABS: Squamous Epithelial Cells - UA 5-10 SEEN /hpf (5-10); White Blood Cells 0-5 SEEN /hpf (0-5)
[2019-07-08] MEDS: Morphine 4 MG/ML Syringe IV (21:10)
[2019-07-08] MEDS: Dicyclomine 10 MG Capsule 20 MG PO (22:49)
[2019-07-08 23:15] VITALS: BP 142/80; PULSE 70; RESP 16; O2SAT 98
== END 2019-07-08 23:20 | disposition home or self-care (01) ==
PROVIDERS: Emergency Provider Emergency Medicine
DX: R10.9 Unspecified abdominal pain (principal); R11.2 Nausea with vomiting, unspecified; E86.0 Dehydration; M54.9 Dorsalgia, unspecified; E66.9 Obesity, unspecified; Z79.52 Long term (current) use of systemic steroids; Z79.899 Other long term (current) drug therapy; Z88.0 Allergy status to penicillin; Z88.1 Allergy status to other antibiotic agents; Z88.5 Allergy status to narcotic agent; Z88.8 Allergy status to other drugs, medicaments and biological substances; Z98.51 Tubal ligation status
CPT/HCPCS: 80048; 81001; 85025; 96361; 96374; 96375; 99284; J7030; A4216; J2405

== ENCOUNTER 2019-08-08 17:46 | Emergency (ER) | payer MEDICAID, SELFPAY ==
[2019-08-08 17:47] VITALS: BP 133/94; PULSE 82; RESP 18; TEMP 36.4; O2SAT 99; BMI 32.2
--- NOTE | 2019-08-08 18:48 | RAD_ITS ---
STUDY: X-RAY - RIGHT FOOT CLINICAL: Female, 38 years old. Injury to right foot. Status post surgery. TECHNIQUE: 3 view(s) of the foot. COMPARISON: None. FINDINGS: Normal talus, calcaneus, and tarsal bones. Normal visualized subtalar, talonavicular, calcaneocuboid, tarsal and tarsometatarsal articulations. Normal second through fifth metatarsi. There is a metallic plate and screws along the dorsal aspect of the first metatarsal phalangeal joint consistent with cervical fusion. Normal tibial and fibular sesamoid bones. There is degenerative arthrosis of the interphalangeal joint of the great toe. Otherwise normal phalanges of the great toe. Normal second through fifth metatarsophalangeal joints. Normal interphalangeal joints and phalanges of the lesser toes. The soft tissue structures are unremarkable. RAD/Foot min 3 Views IMPRESSION: Surgical fusion of the first metatarsophalangeal joint Electronically Signed: Jered Méndez DO at 19:18 EDT Tel [phone], Service support ,
[2019-08-08 19:39] LABS: Absolute Lymphocyte Count 1.86 X10^3/uL (0.83-4.51); Absolute Neutrophil Count 4.8 X10^3/uL (2.0-7.7); Basophil# 0.03 X10^3/uL; Basophil% 0.4 % (0-1); Eosinophil# 0.05 X10^3/uL; Eosinophils% 0.7 % (0-5); Hematocrit 40.3 % (37-47); Lymphocyte # 1.86 X10^3/ul (4.0); Lymphocyte % 25.2 % (19-41); Mean Corp Hgb Conc 32.3 g/dL (32-36); Mean Corpuscular Hgb 27.9 pg (27.0-32.0); Mean Corpuscular Volume 86.5 fL (81-99); Mean Platelet Vol. 9.2 fl (6.2-12.0); Monocyte% 8.1 % (0-10); NRBC Flagged by Analyzer 0 % (0-5); Neutrophil # 4.84 X10^3/uL (2.7-7.7); Neutrophil % 65.5 % (47-70); Platelet Count 298 K/mm3 (150-450); RBC Distribution Width CV 14.2 % (11.6-14.6); Red Blood Count 4.66 M/mm3 (4.2-5.4); White Blood Count 7.4 K/mm3 (4.4-11.0)
[2019-08-08 20:06] LABS: Anion Gap 6 (5-15); BUN 8 mg/dL (7-18); BUN/Creat Ratio 11.8 RATIO (10-20); CRP 4.45 mg/L (0.0-3.0); Calcium,Total 8.6 mg/dL (8.5-10.1); Chloride 109 mmol/L (98-107); Creatinine, Serum 0.68 mg/dL (0.55-1.02); EST Glomerular Filtration Rate 104 mL/min (>60); Est Glom Filt Rate - Afr Amer 125 mL/min (>60); Estimated Creatinine Clearance 94.61 ml/min; Glucose 98 mg/dL (74-106); Potassium 3.7 mmol/L (3.5-5.1); Sodium Level 140 mmol/L (136-145)
[2019-08-08 20:13] LABS: Erythrocyte Sedimentation Rate 14 mm/hr (0-20)
[2019-08-08] MEDS: Ketorolac 60 MG/2 ML Vial IM (20:25)
--- NOTE | 2019-08-08 20:39 | ED.VIS.GEN ---
History of Present Illness Chief Complaint: Lower Extremity Injury Informant: Patient Onset: Today Narrative: On 14 July 2019 the patient had surgery to surgically fused the first metatarsal of the right foot. She states that he has developed some swelling and there was concern for infection and she was supposed to call her doctor about the burning sensation and swelling and if it was still present they would bring her up to [place] where they are at 4 blood work. Today she stumbled bending the toe into dorsi then hyper plantar flexion. She states she called them and they told her to come to emergency. No fevers. No rashes. She denies any drainage from the surgical incision. She states that there appears to be some type of cloth coming from 1 of the incisions. She cannot tell me if there were any subcuticular stitches used. Past Medical History - Allergies and Home Meds Allergies/Adverse Reactions: Allergies acetaminophen [From Vicodin] Allergy (Verified 08/08/19 17:50) Hives hydrocodone [From Vicodin] Allergy (Verified 08/08/19 17:50) Hives levofloxacin [From Levaquin] Allergy (Verified 08/08/19 17:50) Hives Penicillins [PCN] Allergy (Verified 08/08/19 17:50) Anaphylaxis metoclopramide [From Reglan] Adverse Reaction (Verified 08/08/19 17:50) PT UNSURE OF REACTION Surgical History: - - Bilateral tubal ligation Smoking Status: Never smoker Review of Systems General: Denies: Chills, Fever, Sweats Eyes: Denies: Visual changes - bilaterally, Diplopia ENT: Denies: Rhinorrhea, Sore throat Cardiovascular: Denies: Chest pain, Palpitations Respiratory: Denies: Dyspnea, Cough, Dyspnea on exertion Gastrointestinal: Denies: Abdominal pain, Nausea, Vomiting, Diarrhea, Melena, Hematochezia Genitourinary: Denies: Dysuria, Hematuria, Frequency Musculoskeletal: Reports: Swelling, Extremity Pain. Denies: Back pain Skin: Denies: Rash, Wounds Neurological: Denies: Headache, Weakness, Numbness Physical Exam Vital Signs/Narrative: Vital Signs Temp Pulse Resp BP Pulse Ox 08/08/19 17:47 97.6 F L 82 18 133/94 H 99 Inital Vital Signs reviewed: Yes General: Well nourished, Well developed, No Acute Distress Head: Normocephalic, Atraumatic Eyes: Perrl, EOMI ENT: Moist mucous membranes, No rhinorrhea Neck: Supple, Nontender Cardiovascular: Regular rate, Regular rhythm, No murmurs Respiratory: No distress, CTA bilaterally, Chest nontender Abdomen: Soft, Nontender, Nondistended, Normal bowel sounds Back: Nontender, Normal Inspection Extremities: - - There is a well-healed surgical incision on the dorsal surface of the right foot along the first metatarsal. There appears to be a possible stitch at 1 distal point of the incision. There is no significant erythema. There is some mild swelling. Skin: Normal color, No rash Neurological: Alert, Oriented x3, Cranial nerves II-XII grossly intact, Normal Strength, Normal Sensation Psychological: Normal affect, Normal Mood Diagnostic/Tx/Re-eval Clinical Impression(s) from Imaging Studies Foot X-Ray 08/08/19 18:48 IMPRESSION: Surgical fusion of the first metatarsophalangeal joint Electronically Signed: Jered Méndez DO at 19:18 EDT Tel [phone], Service support , Laboratory Last Values WBC 7.4 K/mm3 (4.4-11.0) 08/08/19 19:30 RBC 4.66 M/mm3 (4.2-5.4) 08/08/19 19:30 Hgb 13.0 g/dL (12.0-15.0) 08/08/19 19:30 Hct 40.3 % (37-47) 08/08/19 19:30 MCV 86.5 fL (81-99) 08/08/19 19:30 MCH 27.9 pg (27.0-32.0) 08/08/19 19:30 MCHC 32.3 g/dL (32-36) 08/08/19 19:30 RDW Std Deviation 44.0 fl (35.1-43.9) H 08/08/19 19:30 RDW Coeff of Jerry 14.2 % (11.6-14.6) 08/08/19 19:30 Plt Count 298 K/mm3 (150-450) 08/08/19 19:30 MPV 9.2 fl (6.2-12.0) 08/08/19 19:30 Immature Gran % (Auto) 0.100 % (0.0-0.9) 08/08/19 19:30 Neut % (Auto) 65.5 % (47-70) 08/08/19 19:30 Lymph % (Auto) 25.2 % (19-41) 08/08/19 19:30 [place] % (Auto) 8.1 % (0-10) 08/08/19 19:30 Eos % (Auto) 0.7 % (0-5) 08/08/19 19:30 Baso % (Auto) 0.4 % (0-1) 08/08/19 19:30 Absolute Neuts (auto) 4.8 X10^3/uL (2.0-7.7) 08/08/19 19:30 Absolute Lymphs (auto) 1.86 X10^3/uL (0.83-4.51) 08/08/19 19:30 Nucleated RBC % 0 % (0-5) 08/08/19 19:30 ESR 14 mm/hr (0-20) 08/08/19 19:30 Sodium 140 mmol/L (136-145) 08/08/19 19:30 Potassium 3.7 mmol/L (3.5-5.1) 08/08/19 19: Chloride 109 mmol/L (98-107) H 08/08/19 19:30 Carbon Dioxide 25.0 mmol/L (21.0-32.0) 08/08/19 19:30 Anion Gap 6 (5-15) 08/08/19 19:30 BUN 8 mg/dL (7-18) 08/08/19 19:30 Creatinine 0.68 mg/dL (0.55-1.02) 08/08/19 19:30 Estim Creat Clear Calc 94.61 ml/min 08/08/19 19:30 Est GFR (MDRD) Af Amer 125 mL/min (>60) 08/08/19 19:30 Est GFR (MDRD) Non-Af 104 mL/min (>60) 08/08/19 19:30 BUN/Creatinine Ratio 11.8 RATIO (10-20) 08/08/19 19:30 Glucose 98 mg/dL (74-106) 08/08/19 19:30 Calcium 8.6 mg/dL (8.5-10.1) 08/08/19 19:30 C-React Prot Ext Range 4.45 mg/L (0.0-3.0) H 08/08/19 19:30 - Medical Decision Making X-rays do not reveal a fracture. There are no breaks in the surgical hardware. Her white count is normal. ESR is normal. CRP is minimally elevated at 4. At this point patient will be discharged home. She received a dose of Toradol and oxycodone here in the department. She states she does not need a prescription for pain medicine. The patient has an appointment on with her sieve maker. She should call them inform them of her ER visit and results. ED Disposition - Plan for ED Patient: Disposition: Home or Assisted Living Diagnosis: Right foot sprain, Post-operative pain Instructions: ED Sprain Foot Additional Instructions: I would recommend you call your sieve maker tomorrow and take your labs and x-rays with you to the appointment.
[2019-08-08] MEDS: oxyCODONE 5 MG Tablet 10 MG PO (20:55)
[2019-08-08 20:57] VITALS: BP 124/78; PULSE 75; RESP 18; O2SAT 99
== END 2019-08-08 20:58 | disposition home or self-care (01) ==
PROVIDERS: Emergency Provider Emergency Medicine
DX: G89.18 Other acute postprocedural pain (principal); S93.601A Unspecified sprain of right foot, initial encounter; W18.40XA Slipping, tripping and stumbling without falling, unspecified, initial encounter; Y93.9 Activity, unspecified; Y92.9 Unspecified place or not applicable; Y99.9 Unspecified external cause status; Z98.890 Other specified postprocedural states
CPT/HCPCS: 73630; 80048; 85025; 85652; 86140; 96372; 99283

== ENCOUNTER 2019-08-21 21:26 | Emergency (ER) | payer MEDICAID, SELFPAY ==
[2019-08-21 21:28] VITALS: BP 144/79; PULSE 89; RESP 15; TEMP 36.8; O2SAT 100; BMI 34.2
--- NOTE | 2019-08-21 21:34 | ED.RN ---
RN CALLED FOR EKG, NO OLD EKGS IN MUSE
--- NOTE | 2019-08-21 21:38 | EKG12_ITS ---
Test Reason : CP Blood Pressure : / mmHG Vent. Rate : 080 BPM Atrial Rate : 080 BPM P-R Int : 136 ms QRS Dur : 082 ms QT Int : 390 ms P-R-T Axes : 072 045 040 degrees QTc Int : 449 ms Sinus rhythm with marked sinus arrhythmia Otherwise normal ECG Confirmed by DIGNA RAMIREZ, AMIRAH ([id number]), [employer] ([id number]) on 08/22/2019 3:44:57 PM Referred By: FREDERIC Confirmed By:AMIRAH SAWYER MD
[2019-08-21 21:59] LABS: Absolute Neutrophil Count 6.8 X10^3/uL (2.0-7.7); Basophil# 0.08 X10^3/uL; Basophil% 0.7 % (0-1); Eosinophil# 0.28 X10^3/uL; Eosinophils% 2.6 % (0-5); Hematocrit 36.4 % (37-47); Hemoglobin 11.7 g/dL (12.0-15.0); Lymphocyte % 24.3 % (19-41); Mean Corp Hgb Conc 32.1 g/dL (32-36); Mean Corpuscular Hgb 27.6 pg (27.0-32.0); Mean Corpuscular Volume 85.8 fL (81-99); Mean Platelet Vol. 9.3 fl (6.2-12.0); Monocyte# 0.87 X10^3/uL; Monocyte% 8.1 % (0-10); NRBC Flagged by Analyzer 0 % (0-5); Neutrophil # 6.79 X10^3/uL (2.7-7.7); Neutrophil % 63.6 % (47-70); Platelet Count 265 K/mm3 (150-450); RBC Distribution Width CV 13.7 % (11.6-14.6); RBC Distribution Width SD 42.9 fl (35.1-43.9); Red Blood Count 4.24 M/mm3 (4.2-5.4); White Blood Count 10.7 K/mm3 (4.4-11.0)
[2019-08-21 22:14] LABS: Anion Gap 5 (5-15); BUN 14 mg/dL (7-18); BUN/Creat Ratio 21.6 RATIO (10-20); Calcium,Total 8.6 mg/dL (8.5-10.1); Chloride 107 mmol/L (98-107); Creatinine, Serum 0.65 mg/dL (0.55-1.02); EST Glomerular Filtration Rate 110 mL/min (>60); Est Glom Filt Rate - Afr Amer 133 mL/min (>60); Estimated Creatinine Clearance 98.98 ml/min; Glucose 105 mg/dL (74-106); Potassium 3.8 mmol/L (3.5-5.1); Sodium Level 139 mmol/L (136-145)
--- NOTE | 2019-08-21 22:14 | RAD_ITS ---
STUDY: X-RAY CHEST REASON FOR EXAM: Female, 38 years old. CHEST HEAVINESS WITH SOB. RECENTLY HAD RIGHT FOOT SURGERY THAT GOT INFECTED TECHNIQUE: PA and lateral views of the chest. COMPARISON: None. FINDINGS: EKG leads overlie the chest The lungs are clear and expanded. There is no demonstrated pleural abnormality. Normal size heart. Normal mediastinum and akshat. Normal visualized pulmonary arteries. Normal visualized aortic arch and descending thoracic aorta. Normal visualized thoracic spine. Normal visualized ribs, clavicles, and shoulders. There is no demonstrated abnormality of the visualized soft tissue structures of the upper abdomen. RAD/Chest PA and Lateral IMPRESSION: Normal x-ray examination of the chest. Electronically Signed: Akbar Aguirre MD at 22:31 EDT , Service support ,
--- NOTE | 2019-08-21 22:43 | ED.DCSUM_ITS ---
History of Present Illness Chief Complaint: Chest Pain Informant: Patient Narrative: Patient presenting for evaluation secondary to chest pain. Patient reports that she was discharged from the hospital 2 days ago. She had surgery on her right foot that was complicated by hardware infection, and it required change out of the hardware and IV antibiotics. Patient reports that since her discharge day and a half ago she has developed pain radiating up the entirety of her right leg. She now reports that she has chest pain and shortness of breath. Pain is worse with taking deep breath. Patient denies any fevers. She does endorse some nausea. No vomiting. No diarrhea. No abnormal skin changes of the foot. Patient reports that she was on anticoagulants in the hospital, but has not been on anything since she went home. She is getting around with a seated walker. She denies any prior history of DVT or PE. Review of systems otherwise negative. Past Medical History - Allergies and Home Meds Allergies/Adverse Reactions: Allergies acetaminophen [From Vicodin] Allergy (Verified 08/21/19 21:32) Hives hydrocodone [From Vicodin] Allergy (Verified 08/21/19 21:32) Hives levofloxacin [From Levaquin] Allergy (Verified 08/21/19 21:32) Hives Penicillins [PCN] Allergy (Verified 08/21/19 21:32) Anaphylaxis metoclopramide [From Reglan] Adverse Reaction (Verified 08/21/19 21:32) PT UNSURE OF REACTION Primary Care Physician: MURIEL LOPEZ [Other] Prior records reviewed: Yes Past Medical History: None Surgical History: - - Bilateral tubal ligation Lives: Spouse/ Significant Other Smoking Status: Never smoker Alcohol: None Drugs: None Review of Systems All systems negative except as indicated General: Denies: Chills, Fever, Sweats Eyes: Denies: Visual changes - bilaterally, Diplopia ENT: Denies: Rhinorrhea, Sore throat Cardiovascular: Reports: Chest pain Respiratory: Reports: Dyspnea Gastrointestinal: Denies: Abdominal pain, Nausea, Vomiting, Diarrhea, Melena, Hematochezia Genitourinary: Denies: Dysuria, Hematuria, Frequency Musculoskeletal: Reports: Extremity Pain Skin: Denies: Rash, Wounds Neurological: Denies: Headache, Weakness, Numbness Physical Exam Vital Signs/Narrative: Vital Signs Temp Pulse Resp BP Pulse Ox 08/21/19 21:28 98.3 F 89 15 144/79 H 100 Inital Vital Signs reviewed: Yes General: Well nourished, Well developed, Obese, No Acute Distress Head: Normocephalic, Atraumatic Eyes: Perrl, EOMI ENT: Moist mucous membranes, No rhinorrhea Neck: Supple, Nontender Cardiovascular: Regular rate, Regular rhythm, No murmurs Respiratory: No distress, CTA bilaterally, Chest nontender Abdomen: Soft, Nontender, Nondistended, Normal bowel sounds Back: Nontender, Normal Inspection Extremities: No edema, - - Incision on the dorsum of the patient's right foot is clean dry and intact, no overlying erythema or lymphangitic streaking. There is tenderness to palpation noted of the foot. Skin: Normal color, No rash Neurological: Alert, Oriented x3, Cranial nerves II-XII grossly intact, Normal Strength, Normal Sensation Psychological: Normal affect, Normal Mood Diagnostic/Tx/Re-eval Abnormal Lab Results 08/21/19 08/21/19 08/21/19 21:41 21:41 21:41 WBC 10.7 RBC 4.24 Hgb 11.7 L Hct 36.4 L MCV 85.8 MCH 27.6 MCHC 32.1 RDW Std Deviation 42.9 RDW Coeff of Jerry 13.7 Plt Count 265 MPV 9.3 Immature Gran % (Auto) 0.700 Neut % (Auto) 63.6 Lymph % (Auto) 24.3 Angelina % (Auto) 8.1 Eos % (Auto) 2.6 Baso % (Auto) 0.7 Absolute Neuts (auto) 6.8 Absolute Lymphs (auto) 2.60 Nucleated RBC % 0 D-Dimer Quant (PE/DVT) 0.59 H* Sodium 139 Potassium 3.8 Chloride 107 Carbon Dioxide 27.0 Anion Gap 5 BUN 14 Creatinine 0.65 Estim Creat Clear Calc 98.98 Est GFR (MDRD) Af Amer 133 Est GFR (MDRD) Non-Af 110 BUN/Creatinine Ratio 21.6 H Glucose 105 Calcium 8.6 Troponin I < 0.015 - EKG Initial EKG Interpretation: - - Sinus rhythm of 80 with sinus arrhythmia, isoelectric ST segments normal T waves, normal SC and QTc intervals no evidence of acute ischemia or arrhythmia. - Medical Decision Making Patient presented secondary to leg pain and chest pain. I performed a bedside 2 points duplex ultrasound on the patient's right lower extremity. Femoral vein is compressible with color flow on augmentation. Popliteal vein is the same with normal compressibility and normal color flow on augmentation. EKG was found to be unremarkable. CBC chemistry troponin unremarkable. D-dimer was found to be modestly elevated, so CT angiogram of the chest was ordered. CT angiogram of the chest was negative. PA and lateral chest x-ray by my personal interpretation as well as radiology found to be negative. Patient had pain and nausea in the emergency department this was controlled initially was Zofran and oxycodone, patient was subsequently given Phenergan and morphine and had improvement. Patient at this point I believe is appropriate for discharge. She has pain medications at home, she did request nausea medicine she will be provided with Zofran. Patient's chest pain is low risk her heart score is 1. Patient was discharged in stable condition. ED Disposition - Plan for ED Patient: Disposition: Home or Assisted Living Diagnosis: Chest pain, Right leg pain Instructions: ED Chest Pain NonCardiac Prescriptions: Ondansetron [Zofran Odt] 4 mg PO Q8H PRN PRN #10 tab PRN Reason: Nausea Prescription Printed Referrals: MURIEL LOPEZ [Other] - 5-7 Days
[2019-08-21] MEDS: oxyCODONE 5 MG Tablet 10 MG PO (22:47)
[2019-08-21] MEDS: Ondansetron 4 MG/2 ML Vial IV (22:47)
[2019-08-21 22:57] VITALS: BP 144/86; PULSE 92; RESP 16; O2SAT 98
[2019-08-21 22:57] LABS: D-Dimer Quantitative (DVT/PE) 0.59 FEU/ug/m (0.27-0.49)
--- NOTE | 2019-08-21 22:58 | CT_ITS ---
STUDY: CTA CHEST REASON FOR EXAM: Female, 38 years old. CHEST HEAVINESS AND SOB X 3 HOURS. SHOOTING PAIN R LEG. ELEVATED D-DIMER RADIATION DOSAGE (If Supplied By Facility): CTDIvol = ( 8.37 ) mGy, DLP = ( 601.23 ) mGycm TECHNIQUE: The examination was performed with the intravenous administration of IV 100mL Isovue-370. Post-processing of the angiographic images was performed, with multiplanar reformation and 3D reconstruction. Individualized dose optimization techniques were used for this CT. COMPARISON: None. FINDINGS: Normal enhancement of the main pulmonary artery and right and left pulmonary arteries. Normal enhancement of the bilateral peripheral pulmonary arteries. There is no demonstrated pulmonary embolism. Normal thoracic aorta and visualized great vessels. There is no demonstrated aortic dissection. Normal heart and pericardium. Normal mediastinum. Normal hilar regions. Normal visualized trachea and bronchi. The lungs are well expanded. Normal pulmonary parenchyma. Normal pleura. Normal chest wall structures. Normal osseous structures. Normal visualized upper abdomen. CT/CTA Chest W/WO Contrast IMPRESSION: Normal CTA chest examination, without a demonstrated pulmonary embolism or arterial dissection. Electronically Signed: Akbar Aguirre MD at 23:52 EDT , Service support ,
[2019-08-21 23:00] VITALS: BP 138/66; PULSE 79; RESP 12; O2SAT 98
[2019-08-21] MEDS: proMETHazine 25 MG/ML Syringe 6.25 MG IV (23:50)
[2019-08-21] MEDS: Morphine 4 MG/ML Syringe IV (23:59)
[2019-08-22] VITALS: BP 138/66; PULSE 91; RESP 16; O2SAT 100
[2019-08-22 00:39] VITALS: BP 115/61; PULSE 87; RESP 23; O2SAT 98
== END 2019-08-22 00:40 | disposition home or self-care (01) ==
PROVIDERS: Emergency Provider Emergency Medicine
DX: R07.9 Chest pain, unspecified (principal); M79.604 Pain in right leg; R79.89 Other specified abnormal findings of blood chemistry; R06.02 Shortness of breath; R11.0 Nausea; E66.9 Obesity, unspecified; Z79.4 Long term (current) use of insulin; Z79.52 Long term (current) use of systemic steroids; Z79.899 Other long term (current) drug therapy
CPT/HCPCS: 71046; 71275; 80048; 84484; 85025; 85379; 93005; 96374; 96375; 99282; Q9967; A4216; J2405

== ENCOUNTER 2019-09-02 15:48 | Emergency (ER) | payer MEDICAID, SELFPAY ==
[2019-09-02 15:50] VITALS: BP 137/88; PULSE 77; RESP 16; TEMP 37.4; O2SAT 97; BMI 36.1
--- NOTE | 2019-09-02 16:28 | ED.DCSUM_ITS ---
History of Present Illness Chief Complaint: Other, Pain/Inj Detail of Chief Complaint: R foot pain Informant: Patient Onset: Yesterday - surgery on foot yest Timing: Continuous Quality: ache Location: R foot at operative site Current Severity: Severe Maximum Severity: Severe Worsened by: any movement Relieved by: nothing; taking Rx analgesics Narrative: Patient had a remote fusion in her right foot, and has been having fevers recently, was diagnosed with an MRSA infection in her foot, and had surgery yesterday by her making machine operator Dr. Castellanos at [facility], for hardware removal, autologous bone graft, bone biopsy, and placement of a miniature external fixator. She is due to go back in 2 weeks, she is on IV daptomycin via PICC at home, and since her surgery yesterday and the block wearing off, her pain is been uncontrollable all day today. She is taking prescription oxycodone, 2 at a time, but it is not controlling her pain at all. She was advised to come to the emergency department due to that. She does daily dressing changes with home health nurse. She lives at home with her . She is to be nonweightbearing on her right foot. She just did her last dose of daptomycin prior to coming here. She is having no new issues. She still has low-grade fevers that have been going on since prior to the surgery, they are not going higher and she has no new symptoms. - Past Medical History (1) Lupus Status: Chronic (2) Diabetes mellitus, insulin dependent (IDDM), controlled Status: Chronic Past Medical History - Allergies and Home Meds Allergies/Adverse Reactions: Allergies acetaminophen [From Vicodin] Allergy (Verified 09/02/19 15:50) Hives hydrocodone [From Vicodin] Allergy (Verified 09/02/19 15:50) Hives levofloxacin [From Levaquin] Allergy (Verified 09/02/19 15:50) Hives Penicillins [PCN] Allergy (Verified 09/02/19 15:50) Anaphylaxis metoclopramide [From Reglan] Adverse Reaction (Verified 09/02/19 15:50) PT UNSURE OF REACTION Primary Care Physician: [facility] Doctor,Out of [NON-STAFF] - Doctors: Podiatry - Dr. Ike Castellanos Surgical History: - - Bilateral tubal ligation. Right foot. Lives: Spouse/ Significant Other Smoking Status: Never smoker Review of Systems General: Reports: Fever, Subjective. Denies: Chills, Sweats Eyes: Denies: Visual changes - bilaterally, Diplopia ENT: Denies: Rhinorrhea, Sore throat Cardiovascular: Denies: Chest pain, Palpitations Respiratory: Denies: Dyspnea, Cough, Dyspnea on exertion Gastrointestinal: Denies: Abdominal pain, Nausea, Vomiting, Diarrhea, Melena, Hematochezia Genitourinary: Denies: Dysuria, Hematuria, Frequency Musculoskeletal: Reports: Extremity Pain. Denies: Back pain Skin: Denies: Rash, Wounds Neurological: Denies: Headache, Weakness, Numbness Physical Exam Vital Signs/Narrative: Vital Signs Temp Pulse Resp BP Pulse Ox 09/02/19 15:50 99.4 F H 77 16 137/88 H 97 Inital Vital Signs reviewed: Yes General: Well nourished, Well developed, Acute Distress - mild painful distress Head: Normocephalic, Atraumatic Extremities: - - Significant pain in the right foot, limited range of motion due to this. External fixator is in place dorsal right foot, the pin sites look benign and there is no sign of purulent discharge or local infection. Beatriz are in place on operative incision dorsally. Skin: Normal color, No rash, - - Mild erythema at the operative site right foot, it is diffuse and mild and does not appear consistent with a postoperative infection. Neurological: Alert, Oriented x3, Cranial nerves II-XII grossly intact, Normal Strength, Normal Sensation Psychological: Normal affect, Normal Mood Diagnostic/Tx/Re-eval - Medical Decision Making As above, the postoperative wound with external fixator in place looks good. I see no deformities, significant discharge or bleeding, or signs of acute infection or postoperative complication. She was given IV Dilaudid through her PICC, as well as another dose later. This resulted in good pain control but before I could discuss with the on-call making machine operator for her group, the pain did start to worsen some so she was redosed, given a dose of oxycodone, and the plan is to discharge her home with close outpatient follow-up with her making machine operator. I think this is simply postoperative pain. I discussed with the on-call making machine operator Dr. Elizabeth, who agreed with this management and also advise giving the patient Solu-Medrol 60 mg just once, to help with the postoperative swelling. Patient is diabetic and she is comfortable managing any sliding scale insulin that she may need as a result of this, and is comfortable the overall plan. She was given an extra oxycodone here so that she did not have to use 1 tonight for home upon getting there. Discussed reasons to return. Redressed by nurses. ED Disposition - Plan for ED Patient: Disposition: Home or Assisted Living Diagnosis: Acute postoperative pain of right foot Instructions: ED Wound Check Post Op Pain Referrals: [facility] Doctor,Out of [NON-STAFF] - 2 Days (Your making machine operator)
[2019-09-02] MEDS: HYDROmorphone 1 MG/ML Syringe IV ×3 (16:39→19:12)
[2019-09-02] MEDS: Ondansetron 4 MG/2 ML Vial IV (16:39)
[2019-09-02 18:53] VITALS: BP 131/84; PULSE 67; RESP 18; O2SAT 97
[2019-09-02] MEDS: MethylPREDNISolone 125 MG/2 ML Vial 60 MG IV (19:11)
[2019-09-02] MEDS: oxyCODONE 5 MG Tablet PO (19:12)
== END 2019-09-02 19:35 | disposition home or self-care (01) ==
PROVIDERS: Emergency Provider Emergency Medicine
DX: G89.18 Other acute postprocedural pain (principal); M79.671 Pain in right foot; M79.89 Other specified soft tissue disorders; Z98.890 Other specified postprocedural states; E11.9 Type 2 diabetes mellitus without complications; M32.9 Systemic lupus erythematosus, unspecified; Z79.4 Long term (current) use of insulin; Z79.899 Other long term (current) drug therapy
CPT/HCPCS: 96374; 96375; 96376; 99285; J7030; A4216; J2405

== ENCOUNTER 2019-09-05 01:30 | Emergency (ER) | payer MEDICAID, SELFPAY ==
[2019-09-05 01:30] VITALS: BP 122/67; PULSE 81; RESP 16; TEMP 36.7; O2SAT 98; BMI 40.6
[2019-09-05 01:45] VITALS: BP 122/67; PULSE 81; RESP 16; TEMP 36.7; O2SAT 98
[2019-09-05] MEDS: Acetaminophen 500 MG Tablet 1000 MG PO (02:07)
[2019-09-05] MEDS: Ondansetron 4 MG/2 ML Vial IV (02:19)
[2019-09-05 02:21] LABS: Absolute Lymphocyte Count 1.94 X10^3/uL (0.83-4.51); Absolute Neutrophil Count 2.3 X10^3/uL (2.0-7.7); Basophil# 0.05 X10^3/uL; Eosinophil# 0.13 X10^3/uL; Eosinophils% 2.7 % (0-5); Hemoglobin 11.2 g/dL (12.0-15.0); Lymphocyte # 1.94 X10^3/ul (4.0); Lymphocyte % 40.1 % (19-41); Mean Corpuscular Hgb 27.3 pg (27.0-32.0); Mean Corpuscular Volume 85.2 fL (81-99); Mean Platelet Vol. 9.1 fl (6.2-12.0); Monocyte# 0.41 X10^3/uL; Monocyte% 8.5 % (0-10); NRBC Flagged by Analyzer 0 % (0-5); Neutrophil % 47.5 % (47-70); Platelet Count 272 K/mm3 (150-450); RBC Distribution Width CV 13.7 % (11.6-14.6); RBC Distribution Width SD 42.3 fl (35.1-43.9); Red Blood Count 4.11 M/mm3 (4.2-5.4); White Blood Count 4.8 K/mm3 (4.4-11.0)
[2019-09-05 02:34] LABS: Anion Gap 5 (5-15); BUN 12 mg/dL (7-18); BUN/Creat Ratio 19.7 RATIO (10-20); Calcium,Total 8.5 mg/dL (8.5-10.1); Chloride 110 mmol/L (98-107); Creatinine, Serum 0.61 mg/dL (0.55-1.02); EST Glomerular Filtration Rate 118 mL/min (>60); Est Glom Filt Rate - Afr Amer 142 mL/min (>60); Estimated Creatinine Clearance 105.47 ml/min; Glucose 98 mg/dL (74-106); Sodium Level 140 mmol/L (136-145)
--- NOTE | 2019-09-05 03:19 | ED.DCSUM_ITS ---
- ER Visit Summary Date of Service: 09/05/19 Chief Complaint: Right foot pain History of Present Illness: The patient is a 38 F who reports that she moved to the area from [place] 4 months ago. She states that 4 days ago she had surgery on her right foot at [facility]. She states that this was for osteomyelitis. They removed hardware that was in her foot from a prior fusion and did a bone graft and biopsy. They placed in her ex-fix. This was an outpatient surgery. She states that she has an appointment in 1 week. She is currently on daptomycin through a PICC line. Patient reports that she has pain in the foot is been present since the surgery that is 10 out of 10 at worst and 9 out of 10 currently. It is a sharp pain that is worsened by movement. She is taking 1-2 Percocet every 4 hours without relief. Her last dose was 2-1/2 hours ago. She denies any numbness or weakness. On review of systems patient reports he is been nauseated and vomited 3 times. No blood in her emesis. She denies any fever, chills, or other complaints. Physical Examination: Vitals: Stable. Afebrile. General: Well-nourished and well-developed. Head: Normocephalic atraumatic. Neck: Supple, no lymphadenopathy. No JVD. Nontender. Cardiovascular: Regular rate and rhythm. No murmurs. Respiratory: No respiratory distress. Clear to auscultation bilaterally. Abdominal: Soft, nontender, nondistended, normal bowel sounds. No guarding, rebound, or peritoneal signs. Back: Nontender. Extremities: The dressing was removed from her right foot. There is an ex-fix in place. The incision is clean, dry, and intact. There is no erythema, induration, or drainage on the dressing. It is minimally swollen. She has severe tenderness to palpation. She has less than 2-second capillary refill. She has a 1+ dorsalis pedis pulse. Skin: Normal color, no rash. Neurologic: Alert and oriented ?3. Cranial nerves II through XII are intact. Normal strength and sensation. Psych: Normal affect. Test Results: CBC shows a H&H of 11.2 and 35.0. Her white count is 4.8 and she does not have a left shift. Chem-7 shows a chloride of 110. Emergency Department Course and Treatment: An [facility] report was obtained which shows that since March 31 she has had 29 prescriptions for opiates. This is her ninth visit to the emergency department since June 12. I had a prolonged discussion with her that she needs to speak with her surgeon for management of this pain. I also suggested she would benefit from referral to pain management. She denies having a problem with these medications. Patient was treated with Tylenol p.o. and Zofran IV. She had a dressing placed. Treatment Plan: The patient is instructed to follow-up with her associate drafter as soon as possible for further treatment of her pain. She is also given the phone number for Dr. Sy if she wants to go to pain management. The patient's history will be reviewed for a care plan. Return to the emergency department for any worsening symptoms. Disposition: To home in improved and stable condition. Impression: 1. 4-day status post right foot surgery. 2. Osteomyelitis right foot. This note was generated with [employer] dictation software. It may contain incorrect words, spelling, and punctuation that were not noted in review of the chart prior to signing ED Disposition - Plan for ED Patient: Disposition: Home or Assisted Living Instructions: ED Wound Check Post Op Pain Referrals: Kevin Sy MD [STAFF PHYSICIAN] - As soon as possible Additional Instructions: Follow-up with your associate drafter as soon as possible for further treatment of your pain.
[2019-09-05 03:40] VITALS: BP 128/72; PULSE 76; RESP 18; TEMP 37.1; O2SAT 98
--- NOTE | 2019-10-20 18:43 | CM.ED ---
SOCIAL WORK ED Care Plan reviewed and approved by Dr. Arthur. Call to patient to update on ED Care Plan. Patient voiced no questions or concerns. Copy of ED Care Plan and resources mailed to patient via certified mail. Tracking number: [id number] 12. D. RADHA Aguilar, ECOLOGICAL RISK ASSESSOR
== END 2019-09-05 03:42 | disposition home or self-care (01) ==
PROVIDERS: Emergency Provider Emergency Medicine
DX: M79.671 Pain in right foot (principal); M86.8X7 Other osteomyelitis, ankle and foot; Z98.890 Other specified postprocedural states; R11.2 Nausea with vomiting, unspecified; E11.9 Type 2 diabetes mellitus without complications; M32.9 Systemic lupus erythematosus, unspecified; Z79.4 Long term (current) use of insulin; Z79.899 Other long term (current) drug therapy
CPT/HCPCS: 80048; 85025; 96374; 99283; A4216; J2405